=== PATIENT | female | born 1930 | race Caucasian/White ===

== ENCOUNTER 2017-03-01 07:57 | Emergency (ER) | payer MEDICAID ==
[~2017-03-01] VITALS: Ht 147.3 cm; Wt 60.0 kg
[2017-03-01 08:02] VITALS: BP 139/73; PULSE 79; RESP 18; TEMP 97.7; O2SAT 100
[2017-03-01] MEDS ORDERED: LOSA100T3 PO (08:09)
[2017-03-01] MEDS ORDERED: POTA10CA PO (08:09)
[2017-03-01] MEDS ORDERED: SIMV40TA PO (08:09)
[2017-03-01 08:11] VITALS: BP 145/67; PULSE 81; RESP 18; O2SAT 99
--- NOTE | 2017-03-01 08:13 | PD ---
HPI Chief Complaint: Back/ Neck Pain or Injury Time Seen by Provider: 08:08 Travel History International Travel<30 days: No Contact w/Intl Traveler<30days: No Traveled to known affect area: No History of Present Illness HPI nonenglish speaking (refused formal translating services and would rather have daughter help in translating). visiting from [place], pt c/o neck pain with radiating to bilateral arms, 01/02, onset this am, prior to this no h/o back pain of any type nor any fall. stated that she slept awkwardly on couch (fell asleep while watching tv). patient stated that she woke up with sore neck.... aggravated by movement PFSH Past Medical History Cardiovascular Problems: Yes Social History Tobacco Use: No Allergies-Medications (Allergen,Severity, Reaction): Coded Allergies: iron (Verified Allergy, Intermediate, HIVES, 03/01/17) Reported Meds & Prescriptions Reported Meds & Active Scripts Active Codeine-Acetaminophen 30-300 mg Tab 1 Tab PO Q4H PRN Flexeril (Cyclobenzaprine HCl) 10 Mg Tab 10 Mg PO TID Reported Losartan-Hydrochlorothiazide 100-12.5 Mg Tab 1 Tab PO DAILY Potassium Chloride ER (Potassium Chloride) 10 Meq Cap 10 Meq PO DAILY Simvastatin 40 Mg Tab 40 Mg PO HS Review of Systems Except as stated in HPI: all other systems reviewed are Neg Musculoskeletal: Positive: Pain Physical Exam Narrative GENERAL: SKIN: Warm and dry. HEAD: Atraumatic. Normocephalic. EYES: Pupils equal and round. No scleral icterus. No injection or drainage. ENT: No nasal bleeding or discharge. Mucous membranes pink and moist. NECK: Trachea midline. No JVD. upper neck pain at level of c7 or so, supraspinatus/trapezius area ttp as well. no midline ttp along the rest of back CARDIOVASCULAR: Regular rate and rhythm. strong and equal pulses bilaterally to upper and lower extremities RESPIRATORY: No accessory muscle use. Clear to auscultation. Breath sounds equal bilaterally. GASTROINTESTINAL: Abdomen soft, non-tender, nondistended. MUSCULOSKELETAL: Extremities without clubbing, cyanosis, or edema. No obvious deformities. NEUROLOGICAL: Awake and alert. No obvious cranial nerve deficits. Motor grossly within normal limits. Five out of 5 muscle strength in the arms and legs. Normal speech. PSYCHIATRIC: Appropriate mood and affect; insight and judgment normal. Data Data Last Documented VS Vital Signs Date Time Temp Pulse Resp B/P (MAP) Pulse Ox O2 Delivery O2 Flow Rate FiO2 03/01/17 13:23 03/01/17 11:12 91 20 100 Room Air 03/01/17 08:02 97.7 Orders Orders Electrocardiogram (03/01/17 08:13) Complete Blood Count With Diff (03/01/17 08:13) Comprehensive Metabolic Panel (03/01/17 08:13) Ckmb (Isoenzyme) Profile (03/01/17 08:13) Troponin I (03/01/17 08:13) B-Type Natriuretic Peptide (03/01/17 08:13) Prothrombin Time / Inr (Pt) (03/01/17 08:13) Act Partial Throm Time (Ptt) (03/01/17 08:13) Lipase (03/01/17 08:13) Thyroid Stimulating Hormone (03/01/17 08:13) Iv Access Insert/Monitor (03/01/17 08:13) Ecg Monitoring (03/01/17 08:13) Oximetry (03/01/17 08:13) Ct Cerv Spine W/O Contrast (03/01/17 08:13) Cta Thor Abd Aorta W Iv C W3d (03/01/17 08:13) Ondansetron Inj (Zofran Inj) (03/01/17 08:15) Morphine Inj (Morphine Inj) (03/01/17 08:15) Ct Brain W/O Iv Contrast(Rout) (03/01/17 ) Iohexol 350 Inj (Omnipaque 350 Inj) (03/01/17 11:50) Labs Laboratory Tests Test 03/01/17 08:15 White Blood Count 10.0 TH/MM3 Red Blood Count 3.28 MIL/MM3 Hemoglobin 9.4 GM/DL Hematocrit 28.7 % Mean Corpuscular Volume 87.6 FL Mean Corpuscular Hemoglobin 28.6 PG Mean Corpuscular Hemoglobin Concent 32.7 % Red Cell Distribution Width 13.8 % Platelet Count 235 TH/MM3 Mean Platelet Volume 8.9 FL Neutrophils (%) (Auto) 66.4 % Lymphocytes (%) (Auto) 15.0 % Monocytes (%) (Auto) 12.7 % Eosinophils (%) (Auto) 5.5 % Basophils (%) (Auto) 0.4 % Neutrophils # (Auto) 6.6 TH/MM3 Lymphocytes # (Auto) 1.5 TH/MM3 Monocytes # (Auto) 1.3 TH/MM3 Eosinophils # (Auto) 0.5 TH/MM3 Basophils # (Auto) 0.0 TH/MM3 CBC Comment DIFF FINAL Differential Comment Prothrombin Time 10.6 SEC Prothromb Time International Ratio 1.0 RATIO Activated Partial Thromboplast Time 25.0 SEC Blood Urea Nitrogen 16 MG/DL Creatinine 0.98 MG/DL Random Glucose 95 MG/DL Total Protein 6.8 GM/DL Albumin 2.9 GM/DL Calcium Level 8.6 MG/DL Alkaline Phosphatase 47 U/L Aspartate Amino Transf (AST/SGOT) 24 U/L Alanine Aminotransferase (ALT/SGPT) 15 U/L Total Bilirubin 0.3 MG/DL Sodium Level 138 MEQ/L Potassium Level 4.0 MEQ/L Chloride Level 107 MEQ/L Carbon Dioxide Level 24.1 MEQ/L Anion Gap 7 MEQ/L Estimat Glomerular Filtration Rate 54 ML/MIN Total Creatine Kinase 66 U/L Troponin I LESS THAN 0.02 NG/ML B-Type Natriuretic Peptide 51 PG/ML Lipase 370 U/L Thyroid Stimulating Hormone 3rd Gen 2.530 uIU/ML MDM Medical Decision Making Medical Screen Exam Complete: Yes Emergency Medical Condition: Yes Medical Record Reviewed: Yes Differential Diagnosis SPINAL STENOSIS V CVA V DISSECTION/ANEURYSM Narrative Course PATIENT THOROUGH EVALUATION, NO E/O ANEURYSM/DISSECTION ON ENTIRE AORTA, ALSO CT C SPINE ONLY SHOWED ARTHRITIS, BUT NO SPINAL IMPINGEMENT....OF PARTICULAR NOTE PATIENT IS ABLE TO AMBULATE ON HER OWN AND MOVE HER RIGHT ARM MUCH BETTER THAN BEFORE. 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
[2017-03-01] MEDS ORDERED: MORPHINE SULFATE 2 MG/ML INJ IV PUSH ONE (08:15)
[2017-03-01] MEDS ORDERED: ONDANSETRON HCL 4 MG/2 ML VIAL IV PUSH ONE (08:15)
[2017-03-01 08:44] LABS: AUTOMATED NEUTROPHIL # 6.6 TH/MM3 (1.8-7.7); BASOPHIL % 0.4 % (0.0-2.0); EOSINOPHIL # 0.5 TH/MM3 (0-0.4); EOSINOPHIL % 5.5 % (0.0-4.0); HEMATOCRIT 28.7 % (35.0-46.0); HEMO FLAGS DIFF FINAL; LYMPHOCYTE # 1.5 TH/MM3 (1.0-4.8); MEAN CELL VOLUME 87.6 FL (80.0-100.0); MEAN CORPUSCULAR HEMOGLOBIN 28.6 PG (27.0-34.0); MEAN CORPUSCULAR HGB CONC 32.7 % (32.0-36.0); MONO % 12.7 % (0.0-8.0); NEUT % 66.4 % (16.0-70.0); PLATELET COUNT 235 TH/MM3 (150-450); RED BLOOD COUNT 3.28 MIL/MM3 (4.00-5.30); RED CELL DISTRIBUTION WIDTH 13.8 % (11.6-17.2)
[2017-03-01 08:52] LABS: PROTHROMBIN TIME - PATIENT 10.6 SEC (9.8-11.6)
[2017-03-01 08:59] VITALS: RESP 18; O2SAT 99
[2017-03-01 09:01] LABS: ANION GAP 7 MEQ/L (5-15); AST (GOT) 24 U/L (15-37); BICARBONATE 24.1 MEQ/L (21.0-32.0); BLOOD UREA NITROGEN 16 MG/DL (7-18); CHLORIDE 107 MEQ/L (98-107); GLOMERULAR FILTRATION RATE 54 ML/MIN (>89); SODIUM (NA) 138 MEQ/L (136-145)
[2017-03-01 09:02] LABS: ALT (GPT) 15 U/L (10-53)
[2017-03-01 09:11] LABS: ALKALINE PHOSPHATASE 47 U/L (45-117); TOTAL BILIRUBIN ADULT 0.3 MG/DL (0.2-1.0)
[2017-03-01 09:24] LABS: CREATINE KINASE 66 U/L (26-192)
[2017-03-01 11:12] VITALS: BP 134/61; PULSE 91; RESP 20; O2SAT 100
--- NOTE | 2017-03-01 11:37 | RADRPT ---
EXAM DATE/TIME: 03/01/2017 10:58 [facility] COMPARISON: CT BRAIN W/O CONTRAST, March 01, 2017, 10:47. INDICATIONS : Sudden onset of back pain. IV CONTRAST: 75 cc Omnipaque 350 (iohexol) IV RADIATION DOSE: 9.11 CTDIvol (mGy) MEDICAL HISTORY : Cardiovascular disease. SURGICAL HISTORY : Pacemaker. ENCOUNTER: Initial ACUITY: 1 day PAIN SCALE: 8/10 LOCATION: Bilateral back TECHNIQUE: Volumetric scanning was performed using a multi-row detector CT scanner. The data was post processed with a variety of visualization algorithms including full volume maximum intensity projection, multi -planar sliding thin slab reformation, curved planar reformation, and surface rendering techniques. Using automated exposure control and adjustment of the mA and/or kV according to patient size, radiat ion dose was kept as low as reasonably achievable to obtain optimal diagnostic quality images. DICOM format image data is available electronically for review and comparison. FINDINGS: Thoracic aorta: The aortic root and ascending aorta are normal in caliber. The arch is normal in size measuring 2.4 c m in its mid aspect. There is normal anatomic branching of the great vessels from the arch. The desce nding thoracic aorta is normal in caliber throughout its course. There is only minimal atheroscleroti c plaquing. There is no evidence of dissection of the arch or thoracic aorta. 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 The SMA origin is widely patent. There ar e single renal arteries bilaterally. The renal arteries are widely patent. The infrarenal aorta is no rmal in caliber. The PALLAVI is patent. Pelvic vasculature: The common iliac, internal iliac and external iliac circulation is widely patent. CT source data: There are COPD changes throughout the pulmonary parenchyma. There is no pleural effusion. The heart i s normal in size. There is no pericardial effusion. No significant hilar or mediastinal adenopathy is seen. The solid organs of the abdomen are grossly intact by arterial phase imaging. There is no retr operitoneal adenopathy. No free air or free fluid is seen. The loops of small large bowel are unremar kable. There is no free fluid within the pelvis. Bone window images demonstrate degenerative changes in the thoracic and lumbar spine. CONCLUSION: 1. There is no evidence of thoracic or abdominal aortic dissection. 2. 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 The SMA origin is wide ly patent. The PALLAVI is patent. 3. There are COPD changes within pulmonary parenchyma. 4. There are degenerative changes within the spine. Henry Warner MD on March 01, 2017 at 11:30 Board Certified Radiologist. This report was verified electronically.
--- NOTE | 2017-03-01 11:40 | RADRPT ---
EXAM DATE/TIME: 03/01/2017 10:47 [facility] COMPARISON: No previous studies available for comparison. INDICATIONS : Right sided weakness. RADIATION DOSE: 39.59 CTDIvol (mGy) MEDICAL HISTORY : Cardiovascular disease. SURGICAL HISTORY : Pacemaker. ENCOUNTER: Initial ACUITY: 1 day PAIN SCALE: 0/10 LOCATION: cranial TECHNIQUE: Multiple contiguous axial images were obtained of the head. Using automated exposure control and adj ustment of the mA and/or kV according to patient size, radiation dose was kept as low as reasonably a chievable to obtain optimal diagnostic quality images. DICOM format image data is available electro nically for review and comparison. FINDINGS: CEREBRUM: The ventricles are normal for age. No evidence of midline shift, mass lesion, hemorrhage or acute in farction. No extra-axial fluid collections are seen. POSTERIOR FOSSA: The cerebellum and brainstem are intact. The 4th ventricle is midline. The cerebellopontine angle i s unremarkable. EXTRACRANIAL: The visualized portion of the orbits is intact. SKULL: The calvaria is intact. No evidence of skull fracture. CONCLUSION: 1. No acute intracranial abnormality identified. Henry Warner MD on March 01, 2017 at 11:36 Board Certified Radiologist. This report was verified electronically.
[2017-03-01] MEDS ORDERED: IOHEXOL 350 MG/ML 10 ML VIAL (for RAD DIAG) IVCONTRAST ONE (11:50)
--- NOTE | 2017-03-01 11:58 | RADRPT ---
EXAM DATE/TIME: 03/01/2017 10:47 [facility] COMPARISON: No previous studies available for comparison. INDICATIONS : Neck pain. RADIATION DOSE: 11.4 CTDIvol (mGy) MEDICAL HISTORY : Cardiovascular disease. SURGICAL HISTORY : Pacemaker. ENCOUNTER: Initial ACUITY: 1 day PAIN SCALE: 8/10 LOCATION: Bilateral neck TECHNIQUE: Volumetric scanning of the cervical spine was performed. Multiplanar reconstructions in the sagittal, coronal and oblique axial planes were performed. Using automated exposure control and adjustment o f the mA and/or kV according to patient size, radiation dose was kept as low as reasonably achievable to obtain optimal diagnostic quality images. DICOM format image data is available electronically f or review and comparison. FINDINGS: VERTEBRAE: Normal vertebral body height. ALIGNMENT: No evidence of subluxation. There are mild degenerative changes in the atlantodens joint. C2-C3: The bony spinal canal is normal in size. No evidence of disc bulge or herniation. The neural forami na are bilaterally patent. C3-C4: The there is a small central disc bulge. The thecal space and neural foramina are adequate. There is mild facet arthritis bilaterally. C4-C5: The bony spinal canal is normal in size. No evidence of disc bulge or herniation. The neural forami na are bilaterally patent. C5-C6: There is a small broad-based disc bulge. There is mild facet arthritis bilaterally. The thecal space and foramina are adequate. C6-C7: The bony spinal canal is normal in size. No evidence of disc bulge or herniation. The neural forami na are bilaterally patent. C7-T1: The bony spinal canal is normal in size. No evidence of disc bulge or herniation. The neural forami na are bilaterally patent. CONCLUSION: 1. There are mild degenerative changes in the cervical spine as above. No acute cervical spine fractu re is identified. 2. Note is made of scarring and pleural thickening in the right lung apex. Henry Warner MD on March 01, 2017 at 11:55 Board Certified Radiologist. This report was verified electronically.
[2017-03-01] MEDS ORDERED: CYCL1TAB29 PO (12:34)
[2017-03-01] MEDS ORDERED: CODE30TA2 PO (12:34)
--- NOTE | 2017-03-01 14:19 | EKG ---
Date Performed: 03/01/2017 Time Performed: 08:24:18 PTAGE: 86 years EKG: ELECTRONIC VENTRICULAR PACEMAKER ABNORMAL RHYTHM ECG INTERPRETATION BASED ON A DEFAULT AGE OF 40 YEARS NO PREVIOUS TRACING DOCTOR: Kerwin eFrnandes Interpretating Date/Time 03/01/2017 14:14:46
== END 2017-03-01 13:38 | disposition home or self-care (01) ==
LOC: NEPE 07:57
DX: G62.9 Polyneuropathy, unspecified (principal); M12.88 Other specific arthropathies, not elsewhere classified, other specified site; M54.9 Dorsalgia, unspecified; I25.10 Atherosclerotic heart disease of native coronary artery without angina pectoris; R94.31 Abnormal electrocardiogram [ECG] [EKG]; Z79.899 Other long term (current) drug therapy
CPT/HCPCS: 70450; 71275; 72125; 74174; 80053; 82550; 83690; 83880; 84443; 84484; 85025; 85610; 85730; 93005; 96374; 96375; 99285; J2270; J2405; Q9967